=== PATIENT | male | born 1980 | race Two or more races ===

== ENCOUNTER 2025-03-24 09:05 | Inpatient (IN) | payer OTHER ==
[~2025-03-24] VITALS: Ht 180.3 cm; Wt 99.7 kg
[2025-03-24 11:10] VITALS: BP 125/82; PULSE 57; RESP 17; TEMP 98.1; O2SAT 96
[2025-03-24] MEDS ORDERED: FLUO20TA42 PO (13:06)
[2025-03-24] MEDS ORDERED: NITROGLYCERIN 0.4 MG SL TAB SL PRN (14:30)
[2025-03-24] MEDS ORDERED: MORPHINE SULFATE INJ 2 MG/ml SYRG IV PRN (14:30)
[2025-03-24 14:45] LABS: Hematocrit 44.5 % (41.0-53.0); Hemoglobin 15.2 g/dL (13.5-17.5); Mean Corpuscular Hemoglobin 29.0 pg (28.0-32.0); Mean Corpuscular Volume 84.9 fL (80.0-100.0); Nucleated Red Blood Cells % 0.2 %
[2025-03-24 14:59] LABS: Albumin 4.1 g/dL (3.2-4.8); Alkaline Phosphatase 76 U/L (46-116); Anion Gap 9 (5-15); BUN/Creatinine Ratio 16.2 (10.0-20.0); Blood Urea Nitrogen 17 mg/dL (9-23); Calcium 9.2 mg/dL (8.7-10.4); Carbon Dioxide 28 mmol/L (20-31); Chloride 103 mmol/L (98-107); Potassium 4.1 mmol/L (3.5-5.1); Sodium 140 mmol/L (136-145); Total Protein 6.6 g/dL (5.7-8.2)
[2025-03-24 15:00] LABS: Alanine Aminotransferase 42 U/L (7-40); Bilirubin, Total 1.3 mg/dL (0.2-1.0); Glucose 131 mg/dL (74-106)
[2025-03-24 16:14] LABS: Urine Protein, UAD Negative (Negative)
[2025-03-24 16:42] VITALS: BP 127/86; PULSE 59; RESP 17; TEMP 98.2; O2SAT 98
--- NOTE | 2025-03-24 18:51 | DVHHP ---
ADMIT DATE: 03/24/2025 ATTENDING PHYSICIAN: Teddy Regalado MD CHIEF COMPLAINT: Difficulty urinating. HISTORY OF PRESENT ILLNESS: This is a 44-year-old male, [facility] inmate, who has arranged for a direct admit due to urethral stricture, BPH, and hematuria. The patient complains of increasing difficulty urinating in the past 6 months. Per patient, he urinates at least 5 times a night, though he was not given any medications and he was seen as an outpatient by Urology and arrangements were made for admission for cystoscopy in a.m. He denies any recent hematuria, seeing any blood in his stool. He denies any pain, fever, or chills. PAST MEDICAL HISTORY: He has a history of hepatitis, type unknown; hyperlipidemia; essential tremor; anxiety; urethral stricture. PAST SURGICAL HISTORY: He denies. FAMILY HISTORY: Had a cousin with colon cancer, but immediate family members, he denies. SOCIAL HISTORY: Two to three pack years of smoking. He has history of moderate to heavy alcohol use. 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 He is . He has 2 children, normally resides in [place]. 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 He has been incarcerated 8 years with approximately 2 years left on his sentence. He exercises regularly, comprised of calisthenics and cardio. REVIEW OF SYSTEMS: GENERAL: Denies any recent weight changes. HEENT: Denies any loss of consciousness, severe headache. CARDIOVASCULAR: Denies chest pain, heart disease. RESPIRATORY: Denies cough, shortness of breath, or hemoptysis. GASTROINTESTINAL: Denies nausea or vomiting. GENITOURINARY: As per HPI. NEUROLOGIC: He denies any focal deficits. PHYSICAL EXAMINATION: VITAL SIGNS: He was found to have a temperature of 98.1, blood pressure 125/82, heart rate of 57, respiratory rate of 17, O2 saturation 96% on room air. HEART: S1 and S2, regular. LUNGS: Good equal air exchange, bilateral. Clear to auscultation. ABDOMEN: Soft, nondistended, nontender. Bowel sounds positive. No mass, guarding, or rebound. NEUROLOGIC: He is awake, alert, oriented x 4. He exhibits no focal deficits. LABORATORY DATA: We have a UA which shows a few bacteria. CBC shows a WBC of 5.1 with a hemoglobin of 15.2 and a platelet of 282. Sodium 140, potassium 4.1, BUN 17, creatinine 1.85, glucose 131, total bilirubin 1.3, ALT 42, AST 29. ASSESSMENT: * Urethral stricture. * BPH. * Hyperglycemia. * History of hepatitis. PLAN: Admit to Med-Surg. Condition is stable. Regular diet, n.p.o. at midnight. We will order a hepatitis panel as well as we will also order, PT, PTT. We will continue his fluoxetine and I will start patient on tamsulosin. We will also get a Urology consult. MD WADE Rodrigues/KATIE TID: [id number] RECEIPT: [id number]
[2025-03-24 19:08] LABS: INR 1.02 (0.9-1.15); Partial Thromboplastin Time 26.2 SEC (24.5-34.5); Prothrombin Time 10.8 sec (9.3-11.8)
--- NOTE | 2025-03-24 19:56 | DVHINCON2 ---
Date of service: Mar 24, [address] Regalado Reason for Consultation Urethral stricture History of Present Illness 44-year-old male with suspected urethral stricture disease is admitted to undergo a surgical procedure for the management. He admits to having gonorrhea and chlamydia at age 28 and reports spring of his urination. He also reports difficulty with urination, nocturia and diminished ejaculatory volume. His urinalysis did indicate microscopic hematuria. He is here to undergo cystoscopy with direct visual internal urethrotomy. Past Medical History GC Chlamydia Family History: Patient reports no known family medical history. Social History Smoker Allergies: Coded Allergies: NO KNOWN ALLERGIES (Unverified , 03/24/25) Home Meds Reported Medications Fluoxetine Hcl (Fluoxetine Hcl) 20 Mg Tab, 1 TAB PO DAILY, #90 TAB 3 Refills 03/24/25 Current Medications Current Medications Medications (Trade) Dose Ordered Sig/Joelle Route PRN Reason Start Time Stop Time Status Last Admin Fluoxetine HCl (PROzac CAPSULE) 20 mg DAILY PO 03/25/25 10:00 03/24/25 14:52 DC Nitroglycerin (Ntrostat Sublingual) 0.4 mg Q5MINP PRN SL FOR CHEST PAIN 03/24/25 14:30 Morphine Sulfate 2 mg Q30M PRN IV FOR CHEST PAIN 03/24/25 14:30 03/24/25 14:52 DC Fluoxetine HCl (PROzac CAPSULE) 20 mg DAILY PO 03/24/25 22:00 Tamsulosin HCl (Flomax) 0.4 mg QPM PO 03/25/25 18:00 Review of Systems Slowing of the urination, nocturia and urinary spraying Vital Signs Vital Signs Date Time Temp Pulse Resp B/P (MAP) Pulse Ox O2 Delivery O2 Flow Rate FiO2 03/24/25 16:42 98.2 59 17 127/86 (100) 98 98.2 03/24/25 12:19 Room Air* 0 21 Physical Exam VITAL SIGNS: He was found to have a temperature of 98.1, blood pressure 125/82, heart rate of 57, respiratory rate of 17, O2 saturation 96% on room air. HEART: S1 and S2, regular. LUNGS: Good equal air exchange, bilateral. Clear to auscultation. ABDOMEN: Soft, nondistended, nontender. Bowel sounds positive. No mass, guarding, or rebound. NEUROLOGIC: He is awake, alert, oriented x 4. He exhibits no focal deficits. LABORATORY DATA: We have a UA which shows a few bacteria. CBC shows a WBC of 5.1 with a hemoglobin of 15.2 and a platelet of 282. Sodium 140, potassium 4.1, BUN 17, creatinine 1.85, glucose 131, total bilirubin 1.3, ALT 42, AST 29. Labs/Diagnostic Data Labs Test 03/24/25 18:42 03/24/25 14:50 03/24/25 14:29 Range/Units Prothrombin Time 10.8 9.3-11.8 sec Prothrombin Time INR 1.02 0.9-1.15 Activated Partial Thromboplast Time 26.2 24.5-34.5 SEC Urine Color Yellow Yellow Urine Clarity Clear Clear Urine pH 5.5 5.0-9.0 Urine Specific [place] 1.015 1.001-1.035 Urine Protein Negative Negative Urine Ketones Negative Negative Urine Blood Negative Negative /uL Urine Nitrite Negative Negative Urine Bilirubin Negative Negative Urine Urobilinogen Normal Negative mg/dL Urine Leukocyte Esterase Negative Negative /uL Urine RBC 1 0 - 3 /hpf Urine Microscopic WBC < 1 0-3 /HPF Urine Squamous Epithelial Cells None seen <5 /hpf Urine Bacteria Few H None Seen /hpf Urine Mucus Few None Seen Urine Glucose Normal Normal mg/dL White Blood Count 5.1 4.4-10.8 10^3/uL Red Blood Count 5.24 4.5-5.90 10^6/uL Hemoglobin 15.2 13.5-17.5 g/dL Hematocrit 44.5 41.0-53.0 % Mean Corpuscular Volume 84.9 80.0-100.0 fL Mean Corpuscular Hemoglobin 29.0 28.0-32.0 pg Mean Corpuscular Hemoglobin Concent 34.1 32.0-36.0 g/dL Red Cell Distribution Width 13.4 11.8-14.3 % Platelet Count 228 140-450 10^3/uL Mean Platelet Volume 8.1 6.9-10.8 fL Neutrophils (%) (Auto) 58.4 37.0-80.0 % Lymphocytes (%) (Auto) 32.4 10.0-50.0 % Monocytes (%) (Auto) 7.3 0.0-12.0 % Eosinophils (%) (Auto) 1.1 0.0-7.0 % Basophils (%) (Auto) 0.8 0.0-2.0 % Neutrophils # (Auto) 3.0 1.6-8.6 10 ^3/uL Lymphocytes # (Auto) 1.7 0.4-5.4 10 ^3/uL Monocytes # (Auto) 0.4 0-1.3 10 ^3/uL Eosinophils # (Auto) 0.1 0-0.8 10 ^3/uL Basophils # (Auto) 0 0-0.2 10 ^3/uL Nucleated Red Blood Cells 0.2 % Sodium Level 140 136-145 mmol/L Potassium Level 4.1 3.5-5.1 mmol/L Chloride Level 103 98-107 mmol/L Carbon Dioxide Level 28 20-31 mmol/L Anion Gap 9 5-15 Blood Urea Nitrogen 17 9-23 mg/dL Creatinine 1.05 0.700-1.30 mg/dL Glomerular Filtration Rate Calc 89 >90 mL/min BUN/Creatinine Ratio 16.2 10.0-20.0 Serum Glucose 131 H 74-106 mg/dL Calcium Level 9.2 8.7-10.4 mg/dL Total Bilirubin 1.3 H 0.2-1.0 mg/dL Aspartate Amino Transferase (AST) 29 13-40 U/L Alanine Aminotransferase (ALT) 42 H 7-40 U/L Alkaline Phosphatase 76 46-116 U/L Total Protein 6.6 5.7-8.2 g/dL Albumin 4.1 3.2-4.8 g/dL Assessment Urethral stricture disease Nocturia Slowing of urination Plan/Recommendation Cystoscopy with DVIU Plan discussed with: Patient, Other FREDIS CONRAD MD Mar 24, 2025 19:56
[2025-03-24 20:00] VITALS: PULSE 71; RESP 18; O2SAT 97
[2025-03-24 21:03] VITALS: BP 126/82; PULSE 71; RESP 18; TEMP 98.5; O2SAT 97
[2025-03-25] VITALS (8 sets, daily range): BP systolic 108–124; BP diastolic 71–88; PULSE 65–89; RESP 10–18; TEMP 97.6–98.5; O2SAT 95–99
[2025-03-25] MEDS: CIPROFLOXACIN 400MG/200ML 200 ML IV ONE (06:45)
[2025-03-25] MEDS: IOHEXOL 300 MG/ML 100ML BOTTLE IJ ONE (06:48)
[2025-03-25] MEDS ORDERED: MIDAZOLAM HCL 2MG/2ML 2ml VIAL (1mg/ml) ONE (07:16)
[2025-03-25] MEDS ORDERED: PHENYLEPHRINE HCL 10 MG/ML VL ONE (07:16)
[2025-03-25] MEDS ORDERED: fentaNYL CITRATE 100 MCG/2 ML VL ONE (07:16)
[2025-03-25] MEDS ORDERED: KETOROLAC TROMETH 30 MG/ML 1ML VIAL ONE (07:16)
[2025-03-25] MEDS ORDERED: LIDOCAINE 2% (LOCAL ANESTH.) PF 5ml SDV ONE (07:16)
[2025-03-25] MEDS ORDERED: HYDROmorphone HCL 2 MG/ML VL/or syr ONE (07:16)
[2025-03-25] MEDS ORDERED: ONDANSETRON HCL 4 MG/2 ML VIAL ONE (07:16)
[2025-03-25] MEDS ORDERED: GLYCOPYRROLATE 0.2 MG/ML 1ML VIAL ONE (07:16)
[2025-03-25] MEDS ORDERED: PROPOFOL 10 MG/ML 20 ML IV ONE (07:16)
--- NOTE | 2025-03-25 08:10 | DVHNC2 ---
Procedure - OPERATIVE REPORT Pre-op. Diagnosis: Urinary frequency & urgency Urethral stricture vs. urethral syndrome Post-op. Diagnosis: Urinary frequency, Urgency Urethral stenosis Operation: Cystoscopy with Calibration Anesthesia: General Indications: Patient is here for Cystoscopy with possible DVIU. Risks including but not limited to infections and damage to the Urinary tract were discussed. Benefits of Early detection was discussed. Informed consent was obtained. Details of Procedure: Patient was positioned appropriately. He was prepped and draped in the usual manner. A Cystoscope was assembled and introduced. FINDINGS: Urethra - Urethral stenosis was noted which was passively dilated with the cystoscope; no distinct stricture was found. Prostate - unremarkable ; Bladder - no bladder stones, no bladder tumors, no foreign Body, Ureteral orifice were in the usual location and were of normal configuration, no Trabeculations, no Saccule formation, no Diverticula formation.. Specimens: None Complications: None Findings: Urethral Stenosis was dilated Notes: f/u with [facility] Diagnosis: Visit Code: Procedure Codes: 80840 CYSTO CALBI FOR U STRCT 82 LEZAMA. FREDIS CONRAD MD Mar 25, 2025 08:10
--- NOTE | 2025-03-25 08:14 | DVHDS2 ---
New Physician D'charge PN Admitting Diagnosis Admitting Diagnosis USD Nocturia Discharge Diagnosis same Operations or Procedures Cystoscopy with calibration Reason(s) For Hospitalization Surgery Treatment Plan Discharge Condition of Discharge Fair Disposition Group Home Discharge Instructions Diet: Regular Activity: No Restrictions, As Tolerated Activity comment: as tolerated Medications: pyridium 100 mg po TID Follow Up Care Follow Up/Referral: 2 weeks for [facility] evaluation in clinic Discharge Statement: "Patient was advised to return to the ER or call 911 if any headaches, dizziness, shortness of breath, chest pain, abdominal pain, bleeding, fevers, or worsening of medical condition. Patient was counseled about treatment plan, medications, possible side effects, patientverbalized understanding. All questions were answered to the best of my ability. This discharge took greater then 30 minutes in planning, reviewing documentation, counseling the patient, and discussing with other team members." FREDIS CONRAD MD Mar 25, 2025 08:14
[2025-03-25] MEDS: ACETAMINOPHEN IV 1000 MG/100ML (10MG/ML) IV ONE (08:30)
[2025-03-25] MEDS ORDERED: ONDANSETRON HCL 4 MG/2 ML VIAL IV PRN (08:30)
[2025-03-25] MEDS ORDERED: HYDROmorphone HCL 2 MG/ML VL/or syr IV PRN (08:30)
--- NOTE | 2025-03-25 08:57 | ECG ---
[facility] Test Date: 2025-03-24 Test Time: 14:37:30 Pat Name: CHARLA PERRY Department: [facility]at[facility] Room: 0239 A Gender: M Employee Development Specialist: MATTHEW : 1980 Requested By: FREDIS CONRAD Order Number: [id number] Reading MD: Aris Mendoza Measurements Intervals [place] Rate: 61 P: 61 ID: [id number] QRS: 56 QRSD: 117 T: 63 QT: 420 QTc: 423 Interpretive Statements Sinus rhythm Incomplete right bundle branch block Electronically Signed On 03-25-2025 17:20:48 PST by Aris Mendoza Please click the below link to view image of tracing.
--- NOTE | 2025-03-25 14:33 | DVH ---
INDICATION: SURGERY TECHNIQUE: Frontal view of the chest. COMPARISON: None FINDINGS: . The heart and mediastinal contours are grossly unremarkable. There is no evidence of pleural disease. The lungs are clear. The bony structures of the chest are intact without fracture. IMPRESSION: 1. No evidence of acute disease. AL GEAR GENERATOR MYNOR
[2025-03-25] MEDS ORDERED: TAMS-35 PO (16:13)
--- NOTE | 2025-03-25 16:41 | DVHDS ---
DATE OF DISCHARGE: 03/25/2025 ATTENDING PHYSICIAN: Teddy Regalado MD CHIEF COMPLAINT ON ADMISSION: Difficulty urinating. HISTORY OF PRESENT ILLNESS: This is a 44-year-old male [facility] inmate admitted as a direct admit. He was evaluated previously by Urology and was having difficulty urinating secondary to what was believed to be a urethral stricture. He was admitted for cystoscopy and possible urethral dilatation. HOSPITAL COURSE: He was admitted to Med/Surg in stable condition. He was started on a regular diet, made NPO at midnight. He was restarted on his home dose of fluoxetine. He was also started on tamsulosin for possible BPH. During hospital stay, Urology consult with Dr. Robson Oglesby obtained. The patient was taken to the OR, underwent cystoscopy and was found to have a urethral stricture which was dilated with resolution of the stricture. He returned to the medical floor in stable condition. He has had no untoward events. His urine showed just slight blood tinged. At this time, the patient is now being discharged back to the care of the [facility] in good and stable condition. DISCHARGE DIAGNOSES: * Urethral stricture, status post dilatation. * BPH. DISCHARGE MEDICATIONS: He is given a prescription for tamsulosin 0.4 mg p.o. daily for BPH. Instructed to follow up with Urology Clinic as per Dr. Oglesby's recommendation. MD WADE Rodrigues/TUCKER TID: [id number] RECEIPT: [id number]
[2025-03-25] MEDS: TAMSULOSIN HYDROCHLORIDE 0.4 MG CAP PO SCH (17:51)
[2025-03-26 12:31] LABS: Hepatitis A Total Antibody Positive (Negative)
[2025-03-26 12:32] LABS: Hepatitis B Surface Antigen Negative (Negative); Hepatitis C Antibody Negative (Negative)
== END 2025-03-25 21:15 | DRG 697 ==
LOC: EEVIPCON → EAST 09:05 → EDSTATUS 03-25 09:56
PROVIDERS: ADMIT Internal Medicine; ATTEND Internal Medicine
PROC: 0T7D8ZZ Dilation of Urethra, Via Natural or Artificial Opening Endoscopic (ICD-10-PCS; principal; 2025-03-25 07:35)
DX: N35.819 Other urethral stricture, male, unspecified site (principal); E78.5 Hyperlipidemia, unspecified; N40.1 Benign prostatic hyperplasia with lower urinary tract symptoms; R73.9 Hyperglycemia, unspecified; F17.200 Nicotine dependence, unspecified, uncomplicated; F41.9 Anxiety disorder, unspecified; R35.1 Nocturia
CPT/HCPCS: 36415; 71045; 80053; 81001; 85025; 85610; 85730; 86704; 86706; 86708; 86803; 86850; 86900; 86901; 87081; 87340; 93005; G0378; J0131; J1100; J1885; J2003; J2250; J2405; J2704